=== PATIENT | male | born 1940 | race Caucasian/White ===

== ENCOUNTER 2020-10-21 15:01 | Emergency (ER) | payer OTHER, MEDICARE ==
[~2020-10-21] VITALS: Ht 185.4 cm; Wt 102.1 kg
[~2020-10-21 15:01] MED LIST: AMLO5 PO; ASPI81CH PO; ATOR20 PO; CARV3.125 PO; FISH1000 PO; LISI20 PO; MULVITMIND PO; Ranitidine HCl150 M1 PO
[2020-10-21] MEDS ORDERED: DOCU100 PO (15:21)
[2020-10-21 16:01] LABS: BASOPHILS ABSOLUTE AUTO 0.05 K/mm3 (0.00-0.23); BASOPHILS PERCENT AUTO 0 % (0-2); EOSINOPHILS PERCENT AUTO 0 % (0-6); Hematocrit 45.4 % (37.0-53.0); Hemoglobin 15.1 g/dL (13.5-17.5); IMMATURE GRAN ABSOLUTE AUTO 0.04 K/mm3 (0.00-0.10); IMMATURE GRAN PERCENT AUTO 0 % (0-1); LYMPHOCYTES ABSOLUTE AUTO 1.46 K/mm3 (0.84-5.20); LYMPHOCYTES PERCENT AUTO 13 % (21-46); MONOCYTES PERCENT AUTO 7 % (4-13); Mean Corpuscular HGB 30.7 pg (26.0-34.0); Mean Corpuscular HGB Conc 33.3 g/dL (31.5-36.5); Mean Corpuscular Volume 92 fL (80-100); Mean Platelet Volume 10.1 fL (9.1-12.4); NEUTROPHILS ABSOLUTE AUTO 9.14 K/mm3 (1.96-9.15); NEUTROPHILS PERCENT AUTO 80 % (41-73); Platelet Count 228 K/mm3 (150-400); RDW Coefficient Variation 12.5 % (11.7-14.2); RDW Standard Deviation 42.7 fL (35.1-46.3); Red Blood Cell Count 4.92 M/mm3 (4.30-5.90); White Blood Cell Count 11.49 K/mm3 (4.00-11.30)
[2020-10-21 16:05] LABS: Calcium, Ionized (POC) 1.11 mmol/L (1.10-1.46); Chloride (POC) 101 mmol/L (98-108); Creatinine (POC) 0.9 mg/dL (0.8-1.3); Glucose (ISTAT POC) 138 mg/dL (70-99); Potassium (POC) 4.1 mmol/L (3.5-5.5); Sodium (POC) 133 mmol/L (135-148); Total CO2 (POC) 24 mmol/L (21-32)
[2020-10-21 16:26] LABS: Source, Urine Catheter
[2020-10-21 16:30] LABS: Alanine Aminotransfer (ALT/SGP 26 U/L (12-78); Albumin, Blood 3.3 g/dL (3.4-5.0); Albumin/Globulin Ratio 0.9 (0.8-1.8); Alk Phos 94 U/L (50-136); Anion Gap 9 mmol/L (6-16); Aspartate Aminotrans (AST/SGOT 28 U/L (12-37); Bilirubin, Total 0.5 mg/dL (0.1-1.0); Blood Urea Nitrogen 17 mg/dL (8-24); Bun/Creatinine Ratio 19.6 (12.0-20.0); CO2, Blood 23 mmol/L (21-32); Calcium, Blood 9.1 mg/dL (8.5-10.1); Chloride, Blood 104 mmol/L (98-108); Creatinine, Blood 0.87 mg/dL (0.60-1.20); Globulin, Blood 3.5 g/dL (2.2-4.0); Glomerular Filtration Rate >60 (60-); Glucose, Blood 137 mg/dL (70-99); Potassium, Blood 4.2 mmol/L (3.5-5.5); Sodium, Blood 136 mmol/L (136-145); Total Protein, Blood 6.8 g/dL (6.4-8.2)
[2020-10-21 16:31] LABS: Appearance, Urine Cloudy (Clear); Bilirubin, Urine Neg (Neg); Blood, Urine 5+ (Neg); Color, Urine Yellow (P-Yellow); Glucose Qualitative, Urine Neg (Neg); Ketones, Urine 1+ (Neg); Leukocyte Esterase, Urine 3+ (Neg); Nitrite, Urine Neg (Neg); Protein, Urine 3+ (Neg); Specific Gravity, Urine 1.015 (1.003-1.022); Urobilinogen, Urine NORM (Normal)
[2020-10-21 16:37] LABS: Red Blood Cells, Urine TNTC /hpf (0-2); White Blood Cells, Urine TNTC /hpf (0-5)
[2020-10-21 16:38] LABS: Bacteria Many /hpf; Squamous Epithelial Cells Not Seen /hpf (Few); Transitional Epithelial Cells Rare /hpf (0-Rare)
== END 2020-10-21 18:51 | disposition home or self-care (01) ==
LOC: ER 15:01
PROVIDERS: Emergency Medicine
DX: N21.0 Calculus in bladder (principal); N13.30 Unspecified hydronephrosis; I10 Essential (primary) hypertension; Z79.899 Other long term (current) drug therapy; Z79.82 Long term (current) use of aspirin; Z96.0 Presence of urogenital implants
CPT/HCPCS: 36415; 51702; 51798; 74177; 80047; 80053; 81001; 85014; 85025; 87086; 99284-25; Q9967

== ENCOUNTER 2021-01-23 18:59 | Emergency (ER) | payer OTHER ==
[~2021-01-23] VITALS: Ht 170.2 cm; Wt 68.0 kg
[~2021-01-23 18:59] MED LIST changes: +DOCU100 PO
== END 2021-01-23 20:55 | disposition left against medical advice (07) ==
LOC: ER 18:59
DX: Z53.21 Procedure and treatment not carried out due to patient leaving prior to being seen by health care provider (principal)

== ENCOUNTER 2021-01-26 19:38 | Emergency (ER) | payer OTHER ==
[~2021-01-26] VITALS: Ht 185.4 cm; Wt 98.0 kg
[2021-01-26 20:38] LABS: BASOPHILS ABSOLUTE AUTO 0.06 K/mm3 (0.00-0.23); BASOPHILS PERCENT AUTO 1 % (0-2); EOSINOPHILS ABSOLUTE AUTO 0.07 K/mm3 (0.00-0.68); EOSINOPHILS PERCENT AUTO 1 % (0-6); Hematocrit 49.2 % (37.0-53.0); Hemoglobin 16.5 g/dL (13.5-17.5); IMMATURE GRAN ABSOLUTE AUTO 0.03 K/mm3 (0.00-0.10); IMMATURE GRAN PERCENT AUTO 0 % (0-1); LYMPHOCYTES ABSOLUTE AUTO 0.88 K/mm3 (0.84-5.20); LYMPHOCYTES PERCENT AUTO 8 % (21-46); MONOCYTES ABSOLUTE AUTO 0.65 K/mm3 (0.16-1.47); MONOCYTES PERCENT AUTO 6 % (4-13); Mean Corpuscular HGB 30.9 pg (26.0-34.0); Mean Corpuscular HGB Conc 33.5 g/dL (31.5-36.5); Mean Corpuscular Volume 92 fL (80-100); NEUTROPHILS ABSOLUTE AUTO 8.88 K/mm3 (1.96-9.15); NEUTROPHILS PERCENT AUTO 84 % (41-73); Platelet Count 204 K/mm3 (150-400); RDW Coefficient Variation 12.8 % (11.7-14.2); RDW Standard Deviation 43.5 fL (35.1-46.3); Red Blood Cell Count 5.34 M/mm3 (4.30-5.90); White Blood Cell Count 10.57 K/mm3 (4.00-11.30)
[2021-01-26 20:59] LABS: Alanine Aminotransfer (ALT/SGP 20 U/L (12-78); Albumin, Blood 3.6 g/dL (3.4-5.0); Albumin/Globulin Ratio 0.9 (0.8-1.8); Alk Phos 107 U/L (50-136); Anion Gap 4 mmol/L (6-16); Aspartate Aminotrans (AST/SGOT 17 U/L (12-37); Bilirubin, Total 0.6 mg/dL (0.1-1.0); Blood Urea Nitrogen 11 mg/dL (8-24); Bun/Creatinine Ratio 13.4 (12.0-20.0); CO2, Blood 29 mmol/L (21-32); Calcium, Blood 8.7 mg/dL (8.5-10.1); Chloride, Blood 102 mmol/L (98-108); Creatinine, Blood 0.82 mg/dL (0.60-1.20); Globulin, Blood 3.9 g/dL (2.2-4.0); Glomerular Filtration Rate >60 (60-); Glucose, Blood 113 mg/dL (70-99); Potassium, Blood 4.1 mmol/L (3.5-5.5); Sodium, Blood 135 mmol/L (136-145); Total Protein, Blood 7.5 g/dL (6.4-8.2); Troponin I <0.015 ng/mL (0.000-0.040)
== END 2021-01-27 02:20 | disposition home or self-care (01) ==
LOC: ER 19:38
PROVIDERS: Physician Assistant
DX: I10 Essential (primary) hypertension (principal); Z95.5 Presence of coronary angioplasty implant and graft; Z79.82 Long term (current) use of aspirin; Z79.899 Other long term (current) drug therapy
CPT/HCPCS: 36415; 71046; 80053; 84484; 85025; 93005; 93010; 99284-25

== ENCOUNTER 2021-01-31 13:44 | Emergency (ER) | payer OTHER ==
[~2021-01-31] VITALS: Ht 185.4 cm; Wt 99.8 kg
[2021-01-31 14:45] LABS: BASOPHILS ABSOLUTE AUTO 0.07 K/mm3 (0.00-0.23); BASOPHILS PERCENT AUTO 1 % (0-2); EOSINOPHILS ABSOLUTE AUTO 0.17 K/mm3 (0.00-0.68); EOSINOPHILS PERCENT AUTO 3 % (0-6); Hemoglobin 16.4 g/dL (13.5-17.5); IMMATURE GRAN ABSOLUTE AUTO 0.01 K/mm3 (0.00-0.10); IMMATURE GRAN PERCENT AUTO 0 % (0-1); LYMPHOCYTES ABSOLUTE AUTO 1.84 K/mm3 (0.84-5.20); LYMPHOCYTES PERCENT AUTO 27 % (21-46); MONOCYTES ABSOLUTE AUTO 0.61 K/mm3 (0.16-1.47); MONOCYTES PERCENT AUTO 9 % (4-13); Mean Corpuscular HGB 31.2 pg (26.0-34.0); Mean Corpuscular HGB Conc 33.5 g/dL (31.5-36.5); Mean Corpuscular Volume 93 fL (80-100); Mean Platelet Volume 10.3 fL (9.1-12.4); NEUTROPHILS ABSOLUTE AUTO 4.07 K/mm3 (1.96-9.15); NEUTROPHILS PERCENT AUTO 60 % (41-73); Platelet Count 232 K/mm3 (150-400); RDW Coefficient Variation 12.8 % (11.7-14.2); RDW Standard Deviation 43.8 fL (35.1-46.3); Red Blood Cell Count 5.26 M/mm3 (4.30-5.90); White Blood Cell Count 6.77 K/mm3 (4.00-11.30)
[2021-01-31 15:03] LABS: Alanine Aminotransfer (ALT/SGP 24 U/L (12-78); Albumin, Blood 3.5 g/dL (3.4-5.0); Albumin/Globulin Ratio 0.9 (0.8-1.8); Alk Phos 103 U/L (50-136); Anion Gap 0 mmol/L (6-16); Aspartate Aminotrans (AST/SGOT 37 U/L (12-37); Bilirubin, Total 0.6 mg/dL (0.1-1.0); Blood Urea Nitrogen 10 mg/dL (8-24); Bun/Creatinine Ratio 10.9 (12.0-20.0); CO2, Blood 32 mmol/L (21-32); Calcium, Blood 9.3 mg/dL (8.5-10.1); Chloride, Blood 101 mmol/L (98-108); Creatinine, Blood 0.92 mg/dL (0.60-1.20); Globulin, Blood 3.9 g/dL (2.2-4.0); Glomerular Filtration Rate >60 (60-); Glucose, Blood 140 mg/dL (70-99); Potassium, Blood 4.6 mmol/L (3.5-5.5); Sodium, Blood 133 mmol/L (136-145); Total Protein, Blood 7.4 g/dL (6.4-8.2); Troponin I <0.015 ng/mL (0.000-0.040)
== END 2021-01-31 19:21 | disposition home or self-care (01) ==
LOC: ER 13:44
PROVIDERS: Physician Assistant
DX: R07.9 Chest pain, unspecified (principal); M79.602 Pain in left arm; I10 Essential (primary) hypertension; Z95.5 Presence of coronary angioplasty implant and graft; Z79.82 Long term (current) use of aspirin
CPT/HCPCS: 36415; 71275; 80053; 84484; 85025; 93005; 93010; 99284-25; Q9967

== ENCOUNTER 2021-12-02 05:13 | Emergency (ER) | payer OTHER ==
[~2021-12-02] VITALS: Ht 185.4 cm; Wt 99.8 kg
[2021-12-02 06:08] LABS: Source, Urine Foley catheter
[2021-12-02 06:11] LABS: Appearance, Urine Hazy (Clear); Bilirubin, Urine Neg (Neg); Blood, Urine 5+ (Neg); Color, Urine Amber (P-Yellow); Glucose Qualitative, Urine Neg (Neg); Ketones, Urine Neg (Neg); Leukocyte Esterase, Urine 3+ (Neg); Nitrite, Urine Pos (Neg); Protein, Urine 3+ (Neg); Specific Gravity, Urine 1.015 (1.003-1.022); Urobilinogen, Urine NORM (Normal)
[2021-12-02 06:30] LABS: Red Blood Cells, Urine 50-100 /hpf (0-2); White Blood Cells, Urine 50-100 /hpf (0-5)
[2021-12-02] MEDS ORDERED: CEFD300 PO (06:30)
[2021-12-02 06:31] LABS: Bacteria Many /hpf; Squamous Epithelial Cells Not Seen /hpf (Few)
== END 2021-12-02 07:57 | disposition home or self-care (01) ==
LOC: ER 05:13
PROVIDERS: Emergency Medicine
DX: N39.0 Urinary tract infection, site not specified (principal); R33.9 Retention of urine, unspecified; I10 Essential (primary) hypertension; Z79.899 Other long term (current) drug therapy
CPT/HCPCS: 51702; 81001; 87077; 87086; 87186; 99283-25; A9270

== ENCOUNTER 2022-12-28 12:08 | Day surgery (SDC) | payer OTHER ==
[~2022-12-28] VITALS: Ht 185.4 cm; Wt 99.8 kg
[~2022-12-28 12:08] MED LIST changes: +CEFD300 PO
--- NOTE | 2022-12-28 13:11 | NUR ---
12/28/22 1311 Mendy Anna AT 1250 PLEDGET AT 1251
== END 2022-12-28 14:35 | disposition home or self-care (01) ==
LOC: ORSCSDS 12:08
PROVIDERS: Ophthalmology
PROC: 08DK3ZZ Extraction of Left Lens, Percutaneous Approach (ICD-10-PCS; principal; 2022-12-28 13:30)
DX: E11.36 Type 2 diabetes mellitus with diabetic cataract (principal); H25.12 Age-related nuclear cataract, left eye; H52.202 Unspecified astigmatism, left eye; I10 Essential (primary) hypertension; Z95.0 Presence of cardiac pacemaker; I25.10 Atherosclerotic heart disease of native coronary artery without angina pectoris; J44.9 Chronic obstructive pulmonary disease, unspecified; E78.5 Hyperlipidemia, unspecified; K21.9 Gastro-esophageal reflux disease without esophagitis; G83.9 Paralytic syndrome, unspecified; Z79.82 Long term (current) use of aspirin; Z79.899 Other long term (current) drug therapy
CPT/HCPCS: 82947; J2001; J2250; J2704; J3010; J3301; J7040; V2632

== ENCOUNTER 2023-04-12 01:15 | Observation (INO) | payer OTHER ==
[2023-04-12] VITALS (9 sets, daily range): BP systolic 129–163; BP diastolic 60–85
[~2023-04-12] VITALS: Ht 172.7 cm; Wt 99.9 kg
[2023-04-12] MEDS ORDERED: VITAMIN D310 MC1 PO (01:44)
[2023-04-12] MEDS ORDERED: FISH OIL 1,2001 EAC7 PO (01:44)
[2023-04-12 01:56] LABS: BASOPHILS ABSOLUTE AUTO 0.07 K/mm3 (0.00-0.23); BASOPHILS PERCENT AUTO 1 % (0-2); EOSINOPHILS ABSOLUTE AUTO 0.18 K/mm3 (0.00-0.68); EOSINOPHILS PERCENT AUTO 2 % (0-6); Hematocrit 43.2 % (37.0-53.0); Hemoglobin 15.1 g/dL (13.5-17.5); IMMATURE GRAN ABSOLUTE AUTO 0.06 K/mm3 (0.00-0.10); IMMATURE GRAN PERCENT AUTO 1 % (0-1); LYMPHOCYTES ABSOLUTE AUTO 1.74 K/mm3 (0.84-5.20); LYMPHOCYTES PERCENT AUTO 18 % (21-46); MONOCYTES ABSOLUTE AUTO 0.82 K/mm3 (0.16-1.47); MONOCYTES PERCENT AUTO 9 % (4-13); Mean Corpuscular HGB 31.9 pg (26.0-34.0); Mean Corpuscular Volume 91 fL (80-100); Mean Platelet Volume 9.9 fL (9.1-12.4); NEUTROPHILS ABSOLUTE AUTO 6.82 K/mm3 (1.96-9.15); NEUTROPHILS PERCENT AUTO 70 % (41-73); Platelet Count 202 K/mm3 (150-400); RDW Coefficient Variation 12.9 % (11.7-14.2); RDW Standard Deviation 43.1 fL (35.1-46.3); Red Blood Cell Count 4.73 M/mm3 (4.30-5.90); White Blood Cell Count 9.69 K/mm3 (4.00-11.30)
[2023-04-12 02:06] LABS: Albumin/Globulin Ratio 0.9 (0.8-1.8); Bilirubin, Total 0.3 mg/dL (0.1-1.0); Bun/Creatinine Ratio 17.7 (12.0-20.0); Creatinine, Blood 0.9 mg/dL (0.60-1.20); Globulin, Blood 3.4 g/dL (2.2-4.0); Potassium, Blood 4.1 mmol/L (3.5-5.5); Total Protein, Blood 6.4 g/dL (6.4-8.2)
[2023-04-12 03:51] LABS: Anti-Xa UFH, PHA Monitoring <0.10 IU/mL; Prothrombin Time Results 10.5 Sec (9.7-11.5)
[2023-04-12 05:55] LABS: BASOPHILS ABSOLUTE AUTO 0.06 K/mm3 (0.00-0.23); BASOPHILS PERCENT AUTO 1 % (0-2); EOSINOPHILS PERCENT AUTO 1 % (0-6); Hematocrit 42.8 % (37.0-53.0); Hemoglobin 14.4 g/dL (13.5-17.5); IMMATURE GRAN ABSOLUTE AUTO 0.02 K/mm3 (0.00-0.10); IMMATURE GRAN PERCENT AUTO 0 % (0-1); LYMPHOCYTES ABSOLUTE AUTO 2.15 K/mm3 (0.84-5.20); LYMPHOCYTES PERCENT AUTO 26 % (21-46); MONOCYTES ABSOLUTE AUTO 0.69 K/mm3 (0.16-1.47); MONOCYTES PERCENT AUTO 8 % (4-13); Mean Corpuscular HGB 31.4 pg (26.0-34.0); Mean Corpuscular HGB Conc 33.6 g/dL (31.5-36.5); Mean Corpuscular Volume 93 fL (80-100); Mean Platelet Volume 9.7 fL (9.1-12.4); NEUTROPHILS ABSOLUTE AUTO 5.34 K/mm3 (1.96-9.15); NEUTROPHILS PERCENT AUTO 64 % (41-73); Platelet Count 212 K/mm3 (150-400); RDW Standard Deviation 44.5 fL (35.1-46.3); Red Blood Cell Count 4.59 M/mm3 (4.30-5.90); White Blood Cell Count 8.36 K/mm3 (4.00-11.30)
[2023-04-12 06:37] LABS: Alanine Aminotransfer (ALT/SGP 16 U/L (12-78); Albumin, Blood 2.7 g/dL (3.4-5.0); Albumin/Globulin Ratio 0.9 (0.8-1.8); Alk Phos 79 U/L (50-136); Anion Gap 9 mmol/L (6-16); Aspartate Aminotrans (AST/SGOT 19 U/L (12-37); Bilirubin, Total 0.3 mg/dL (0.1-1.0); Blood Urea Nitrogen 12 mg/dL (8-24); Bun/Creatinine Ratio 14.4 (12.0-20.0); CHOL/HDL RATIO 2.7; CO2, Blood 22 mmol/L (21-32); Calcium, Blood 7.9 mg/dL (8.5-10.1); Chloride, Blood 102 mmol/L (98-108); Cholesterol 142 mg/dL (50-200); Creatinine, Blood 0.84 mg/dL (0.60-1.20); Glomerular Filtration Rate 87 (60-); Glucose, Blood 114 mg/dL (70-99); HDL Cholesterol 53 mg/dL (>39); LDL/HDL RATIO 1.5; Low Density Lipoprotein Chol 78 mg/dL (0-110); Potassium, Blood 3.7 mmol/L (3.5-5.5); Sodium, Blood 133 mmol/L (136-145); Total Protein, Blood 5.7 g/dL (6.4-8.2); Triglycerides 56 mg/dL (30-160); Very Low Density Lipoprot Chol 11 mg/dL (6-32)
--- NOTE | 2023-04-12 07:21 | NUR ---
SHIFT SUMARY ASSUMED CARE OF PT AT SHIFT CHANGE 0645. PT IS A/OX4. HEPRIN GTT RUNNING. PT ABLE TO TRANSFER FROM BED TO BED WITH 1P SBA. REPORT GIVEN TO WILMA VELÁSQUEZ. PT EDUCATED ABOUT HOSPITAL SMOKING POLICY.
--- NOTE | 2023-04-12 10:08 | NUR ---
PT LEFT PCU FOR ANGIO AT 0900 VIA HOSPITAL BED AND OCCOMPANIED BY 3 HC STAFF
--- NOTE | 2023-04-12 12:49 | NUR ---
PT ARRIVED BACK TO PCU FROM AT 1008. TR BAND IN PLACE RIGHT RADIAL SITE, C/D/I WITH NO TENDERNESS. BEDSIDE REPORT GIVEN TO PRODUCER ASSISTANT AND THEN FORWARDED TO THIS RN.
--- NOTE | 2023-04-12 12:51 | NUR ---
2ML REMOVED FROM TR BAND. SITE C/D/I. NO REPORT OF TENDERNESS AND NO HEMATOMA NOTED.
--- NOTE | 2023-04-12 12:55 | NUR ---
PT ASSESSED FOR IGNITION RISK DEVICES AND LIGHTERS AT 0800, NONE REPORTED BY PT. PT REMIDED THAT [facility] IS A SMOKE FREE FACILITY, PT EXPRESSED UNDERSTANDING. NO OXYGEN IN USE.
--- NOTE | 2023-04-12 18:33 | NUR ---
SHIFT SUMMARY PT A/OX4 AND COOPERATIVE OF CARE. PT ABLE TO EXPRESS NEEDS. PT VSS THROUGHOUT SHIFT WITH 02 SATS IN THE 90'S ON RA. NO REPORT OF CHEST PAIN/PRESSURE THROUGHOUT SHIFT, NITRO ON COUNTER IN ROOM IN CASE OF CHEST PAIN. NO REPORT OF SOB/DYSPNEA THROUGHOUT SHIFT. PT HAD ANGIO TODAY, NO INTERVENTIONS. RIGHT RADIAL SITE C/D/I WITH NO HEMATOMA NOTED AND NO TENDERNESS. PT INDEPENDENT IN BED. PT TRANSFERED FROM BED TO BSC WITH 2 PERSON ASSIST. PT HAS CHRONIC JAMA IN PLACE THAT WAS PLACED PRIOR TO ADMISSION, NOTIFIED AND ORDERED FOR IT TO STAY IN PLACE WITHOUT NEEDING TO CHAGE IT. JAMA DRAINING TO GRAVITY, YELLOW URINE.
[2023-04-12 20:45] LABS: Source, Urine Clean Catch
[2023-04-12 20:53] LABS: Appearance, Urine Cloudy (Clear); Bilirubin, Urine Neg (Neg); Blood, Urine 5+ (Neg); Color, Urine Yellow (P-Yellow); Glucose Qualitative, Urine 1+ (Neg); Ketones, Urine Neg (Neg); Leukocyte Esterase, Urine 3+ (Neg); Nitrite, Urine Pos (Neg); Protein, Urine 2+ (Neg); Specific Gravity, Urine 1.015 (1.003-1.022); Urobilinogen, Urine 1+ (Normal)
[2023-04-12 21:02] LABS: Bacteria Many /hpf; Hyaline Casts 0-2 /lpf (0-2); Squamous Epithelial Cells Rare /hpf (Few); WBC Cast 0-2 /lpf (0); White Blood Cells, Urine TNTC /hpf (0-5)
[2023-04-13 00:09] VITALS: BP 108/64
[2023-04-13 03:56] LABS: Hematocrit 44.6 % (37.0-53.0); Hemoglobin 15.2 g/dL (13.5-17.5); Mean Corpuscular HGB 31.6 pg (26.0-34.0); Mean Corpuscular HGB Conc 34.1 g/dL (31.5-36.5); Mean Corpuscular Volume 93 fL (80-100); Mean Platelet Volume 9.8 fL (9.1-12.4); Platelet Count 193 K/mm3 (150-400); RDW Standard Deviation 44.7 fL (35.1-46.3); Red Blood Cell Count 4.81 M/mm3 (4.30-5.90); White Blood Cell Count 7.71 K/mm3 (4.00-11.30)
[2023-04-13 05:14] VITALS: BP 126/68
[2023-04-13 05:50] LABS: Bun/Creatinine Ratio 15.3 (12.0-20.0); Calcium, Blood 8.4 mg/dL (8.5-10.1); Creatinine, Blood 0.92 mg/dL (0.60-1.20); Potassium, Blood 4.1 mmol/L (3.5-5.5)
--- NOTE | 2023-04-13 05:59 | NUR ---
SHIFT SUMMARY ASSUMED CARE OF PT AT 1900. PT IS A/OX4. HEART SOUNDS REGULAR, PT PACED T/O THE NOC. LUNG SOUNDS CLEAR. PT SLEPT MOST OF THE NOC. URINE HAS STRONG SMELL BUT CLEAR. R RADIAL SITE RECOVERED WITH SMALL BRUISE. PT EDUCATED ABOUT HOSPIAL SMOKING POLICY AND FIRE SAFETY.
[2023-04-13 08:26] VITALS: BP 141/85
[2023-04-13 12:00] VITALS: BP 145/72
[2023-04-13] MEDS ORDERED: AMLO5 PO (13:52)
[2023-04-13] MEDS ORDERED: ASPI81CH PO (13:53)
[2023-04-13] MEDS ORDERED: CLOP75 PO (13:54)
[2023-04-13] MEDS ORDERED: ATOR40TA PO (13:54)
[2023-04-13] MEDS ORDERED: METO25ER PO (13:55)
--- NOTE | 2023-04-13 16:43 | NUR ---
DISCHARGE UPDATE DISCHARGE PACKET GONE OVER WITH PT AND PT FRIEND AT 1515. PT DISCHARGED AT 1615 VIA WHEELCHAIR AND ON RA. PT BELONGINGS IN BAG ALONG WITH DISCHARGE PACKET AND WITH PT DURING DISCHARGE. PT FRIEND TO DRIVE PT HOME. PT ABLE TO RANSFER TO AND FROM WHEELCHAIR WITH MODERATE ASISTANCE AND TURNING AND PIVOTING.
== END 2023-04-13 16:18 | disposition home or self-care (01) ==
LOC: ER 01:15 → PCU 01:16
PROVIDERS: Family Medicine; Internal Medicine; Student in an Organized Health Care Education/Training Program; ADMIT Student in an Organized Health Care Education/Training Program
DX: I21.4 Non-ST elevation (NSTEMI) myocardial infarction (principal); I10 Essential (primary) hypertension; Z95.5 Presence of coronary angioplasty implant and graft; Z95.0 Presence of cardiac pacemaker; Z66 Do not resuscitate; I24.9 Acute ischemic heart disease, unspecified; I25.10 Atherosclerotic heart disease of native coronary artery without angina pectoris; Z88.8 Allergy status to other drugs, medicaments and biological substances; Z87.891 Personal history of nicotine dependence
CPT/HCPCS: 36415; 51702; 71045; 76937; 80048; 80053; 80061; 81001; 83880; 84484; 85025; 85027; 85520; 85610; 85730; 87086; 93005; 93010; 93458; 96365-59; 96366-59; 99152; 99285-25; A9270; C1769; C1887; C1894; C8929; G0378; J1644; J2250; J3010; J7030; J7050; Q9957; Q9967

== ENCOUNTER 2023-07-20 05:09 | Emergency (ER) | payer OTHER ==
[~2023-07-20] VITALS: Ht 185.4 cm; Wt 97.5 kg
[~2023-07-20 05:09] MED LIST changes: +ATOR40TA PO; +CLOP75 PO; +FISH OIL 1,2001 EAC7 PO; +METO25ER PO; +VITAMIN D310 MC1 PO
[2023-07-20] MEDS ORDERED: BACLOFEN5 M1 PO (05:27)
[2023-07-20 06:40] LABS: BASOPHILS ABSOLUTE AUTO 0.04 K/mm3 (0.00-0.23); BASOPHILS PERCENT AUTO 0 % (0-2); EOSINOPHILS ABSOLUTE AUTO 0.01 K/mm3 (0.00-0.68); EOSINOPHILS PERCENT AUTO 0 % (0-6); Hematocrit 40.7 % (37.0-53.0); Hemoglobin 14.3 g/dL (13.5-17.5); IMMATURE GRAN ABSOLUTE AUTO 0.03 K/mm3 (0.00-0.10); IMMATURE GRAN PERCENT AUTO 0 % (0-1); LYMPHOCYTES ABSOLUTE AUTO 1.11 K/mm3 (0.84-5.20); LYMPHOCYTES PERCENT AUTO 10 % (21-46); MONOCYTES ABSOLUTE AUTO 0.73 K/mm3 (0.16-1.47); MONOCYTES PERCENT AUTO 7 % (4-13); Mean Corpuscular HGB 31.5 pg (26.0-34.0); Mean Corpuscular HGB Conc 35.1 g/dL (31.5-36.5); Mean Corpuscular Volume 90 fL (80-100); NEUTROPHILS ABSOLUTE AUTO 8.92 K/mm3 (1.96-9.15); NEUTROPHILS PERCENT AUTO 82 % (41-73); Platelet Count 205 K/mm3 (150-400); RDW Coefficient Variation 12.7 % (11.7-14.2); RDW Standard Deviation 42.2 fL (35.1-46.3); Red Blood Cell Count 4.54 M/mm3 (4.30-5.90); White Blood Cell Count 10.84 K/mm3 (4.00-11.30)
[2023-07-20 06:57] LABS: Source, Urine Foley catheter
[2023-07-20 07:12] LABS: Albumin, Blood 3.3 g/dL (3.4-5.0); Albumin/Globulin Ratio 1.1 (0.8-1.8); Bilirubin, Direct 0.3 mg/dL (0.0-0.3); Bilirubin, Indirect 0.8 mg/dL (0.1-0.7); Bilirubin, Total 1.1 mg/dL (0.1-1.0); Bun/Creatinine Ratio 22.8 (12.0-20.0); Calcium, Blood 8.3 mg/dL (8.5-10.1); Creatinine, Blood 0.75 mg/dL (0.60-1.20); Globulin, Blood 3.1 g/dL (2.2-4.0); Potassium, Blood 3.7 mmol/L (3.5-5.5); Total Protein, Blood 6.4 g/dL (6.4-8.2)
[2023-07-20 07:35] LABS: Bilirubin, Urine Neg (Neg); Blood, Urine 5+ (Neg); Glucose Qualitative, Urine Neg (Neg); Ketones, Urine 2+ (Neg); Leukocyte Esterase, Urine 3+ (Neg); Nitrite, Urine Pos (Neg); Protein, Urine 2+ (Neg); Specific Gravity, Urine 1.015 (1.003-1.022); Urobilinogen, Urine NORM (Normal)
[2023-07-20 07:38] LABS: Appearance, Urine Hazy (Clear); Color, Urine Yellow (P-Yellow)
[2023-07-20 07:42] LABS: Red Blood Cells, Urine 25-50 /hpf (0-2); White Blood Cells, Urine 25-50 /hpf (0-5)
[2023-07-20 07:43] LABS: Bacteria Mod /hpf; Squamous Epithelial Cells Rare /hpf (Few)
[2023-07-20] MEDS ORDERED: CEFP200 PO (08:04)
[2023-07-20 10:38] VITALS: BP 122/66
== END 2023-07-20 10:55 | disposition home or self-care (01) ==
LOC: ER 05:09
PROVIDERS: Student in an Organized Health Care Education/Training Program
DX: T83.518A Infection and inflammatory reaction due to other urinary catheter, initial encounter (principal); T83.018A Breakdown (mechanical) of other urinary catheter, initial encounter; R33.9 Retention of urine, unspecified; X58.XXXA Exposure to other specified factors, initial encounter; Z87.891 Personal history of nicotine dependence; I10 Essential (primary) hypertension; R73.03 Prediabetes; Z88.6 Allergy status to analgesic agent; Z88.8 Allergy status to other drugs, medicaments and biological substances; Z79.899 Other long term (current) drug therapy
CPT/HCPCS: 51702; 51798; 80048; 80076; 81001; 85025; 87077; 87086; 87147; 87186; 96374; 99284-25; A9270; J2270

== ENCOUNTER 2023-10-28 05:25 | Emergency (ER) | payer OTHER ==
[~2023-10-28] VITALS: Ht 185.4 cm; Wt 97.5 kg
[~2023-10-28 05:25] MED LIST changes: +BACLOFEN5 M1 PO; +CEFP200 PO; +SULTRIDS PO
[2023-10-28] MEDS ORDERED: Tranexamic Acid 100 ML IV ONE (07:10)
[2023-10-28 10:25] LABS: Source, Urine Foley catheter
[2023-10-28 10:31] LABS: Appearance, Urine Cloudy (Clear); Bilirubin, Urine Neg (Neg); Blood, Urine 4+ (Neg); Color, Urine Yellow (P-Yellow); Glucose Qualitative, Urine Neg (Neg); Ketones, Urine Neg (Neg); Leukocyte Esterase, Urine 3+ (Neg); Nitrite, Urine Neg (Neg); Protein, Urine Neg (Neg); Urobilinogen, Urine NORM (Normal)
[2023-10-28 10:43] LABS: Bacteria Mod /hpf; Red Blood Cells, Urine 0-2 /hpf (0-2); Squamous Epithelial Cells Few /hpf (Few); White Blood Cells, Urine 25-50 /hpf (0-5)
[2023-10-28 13:00] VITALS: BP 138/70
== END 2023-10-28 13:19 | disposition home or self-care (01) ==
LOC: ER 05:25
PROVIDERS: Student in an Organized Health Care Education/Training Program
DX: R31.9 Hematuria, unspecified (principal); Z87.448 Personal history of other diseases of urinary system; Z96.0 Presence of urogenital implants; Z87.891 Personal history of nicotine dependence; I10 Essential (primary) hypertension; N40.0 Benign prostatic hyperplasia without lower urinary tract symptoms; Z79.899 Other long term (current) drug therapy; Z88.4 Allergy status to anesthetic agent; Z88.8 Allergy status to other drugs, medicaments and biological substances
CPT/HCPCS: 12046; 51798; 81001; 87077; 87086; 87186; 96374; 99283-25

== ENCOUNTER 2024-09-13 23:22 | Inpatient (IN) | payer OTHER ==
[~2024-09-13] VITALS: Ht 185.4 cm; Wt 101.6 kg
[~2024-09-13 23:22] MED LIST changes: +FISH OIL 1,2001 EAC4 PO; -FISH OIL 1,2001 EAC7 PO
[2024-09-13 23:42] LABS: BASOPHILS ABSOLUTE AUTO 0.08 K/mm3 (0.00-0.23); BASOPHILS PERCENT AUTO 1 % (0-2); EOSINOPHILS ABSOLUTE AUTO 0.22 K/mm3 (0.00-0.68); EOSINOPHILS PERCENT AUTO 2 % (0-6); Hematocrit 37.4 % (37.0-53.0); Hemoglobin 11.8 g/dL (13.5-17.5); IMMATURE GRAN ABSOLUTE AUTO 0.03 K/mm3 (0.00-0.10); IMMATURE GRAN PERCENT AUTO 0 % (0-1); LYMPHOCYTES ABSOLUTE AUTO 2.19 K/mm3 (0.84-5.20); LYMPHOCYTES PERCENT AUTO 21 % (21-46); MONOCYTES ABSOLUTE AUTO 1.09 K/mm3 (0.16-1.47); MONOCYTES PERCENT AUTO 10 % (4-13); Mean Corpuscular HGB 27.5 pg (26.0-34.0); Mean Corpuscular HGB Conc 31.6 g/dL (31.5-36.5); Mean Corpuscular Volume 87 fL (80-100); Mean Platelet Volume 10.2 fL (9.1-12.4); NEUTROPHILS ABSOLUTE AUTO 6.95 K/mm3 (1.96-9.15); NEUTROPHILS PERCENT AUTO 66 % (41-73); Platelet Count 257 K/mm3 (150-400); RDW Coefficient Variation 14.6 % (11.7-14.2); RDW Standard Deviation 46.8 fL (35.1-46.3); Red Blood Cell Count 4.29 M/mm3 (4.30-5.90); White Blood Cell Count 10.56 K/mm3 (4.00-11.30)
[2024-09-13] MEDS ORDERED: Aspir 8181 MG PO (23:52)
[2024-09-13 23:55] LABS: Albumin, Blood 3.3 g/dL (3.4-5.0); Albumin/Globulin Ratio 0.8 (0.8-1.8); Bilirubin, Total 0.4 mg/dL (0.1-1.0); Bun/Creatinine Ratio 29.8 (12.0-20.0); Calcium, Blood 8.7 mg/dL (8.5-10.1); Creatinine, Blood 0.64 mg/dL (0.60-1.20); Globulin, Blood 3.9 g/dL (2.2-4.0); Potassium, Blood 4.6 mmol/L (3.5-5.5); Total Protein, Blood 7.2 g/dL (6.4-8.2)
[2024-09-14] MEDS ORDERED: FLU VACC TS2024-25(6MOS UP)/PF 45 MCG/0.5 ML SYRINGE IM ONE (03:45)
[2024-09-14 04:34] VITALS: BP 144/77
[2024-09-14] MEDS ORDERED: Nitroglycerin 0.4 MG SUBL SL PRN (04:40)
[2024-09-14] MEDS ORDERED: NS 1,000 ML IV ONE (04:40)
[2024-09-14 05:37] LABS: Bun/Creatinine Ratio 23.5 (12.0-20.0); Calcium, Blood 9.1 mg/dL (8.5-10.1); Creatinine, Blood 0.64 mg/dL (0.60-1.20); Potassium, Blood 3.9 mmol/L (3.5-5.5)
--- NOTE | 2024-09-14 05:38 | NUR ---
SBAR RECEIVED OVER THE PHONE FROM ANIMAL CARE WORKERCHRISTEN HARTMANN @1493. PT ARRIVED TO MEDICAL FLOOR RM#[id number] @8971. PT TRANSFERRED FROM ER [facility] TO HOSPITAL BED WITH SBA. PT BROUGHT ALL HIS BELONINGS FROM THE ED. PT HAS A LEG BAG FOR THE SUPRAPUBIC CATHETER; PER PT REQUEST IT WAS PLACED TO A PT BELONINGS BAG AMONG WITH HIS PAIR OF SWEATS. CHRISTEN FERNÁNDEZ COMPLETED THE ADMISSION ASSESSMENT, AND SKIN CHECK WAS COMPLETED BY CHRISTEN FERNÁNDEZ AND CHRISTEN SAM. PT IS A&O X4, TALKATIVE, COOPERATIVE WITH CARE. NS INFUSING @75MLS/HR 1/1BAG. SUPRAPUBIC CATHETER BAG WAS SWITCHED TO 1L BAG, STERILE CONNECTION. CHRISTEN DAVIS WAS NOTIFIED THAT THE CATHETER WAS NOT CHANGED UPON ADMISSION TO THE MEDICAL FLOOR NOR AT ED. PT HAS AN APPOINTMENT WITH PA UROLOGIST IN [place], [place] THIS UPCOMING WEEK (PER ED CHRISTEN PATTERSON, SCHEDULED CATHETER CHANGE). PER CHRISTEN FERNÁNDEZ: SKIN: LEFT LE IS REDDENED, INTACT AND RIGHT GLUTEAL FOLD AREA HAS AN AREA THAT IS REDDISH IN COLOR, INTACT. PT REPORTS THIS WAS AN OLD AREA WHERE HE HAD A SKIN FUNGI. NO OTHER SKIN ISSUES PER RN REPORT. BED AT THE LOWEST POSITION, CALL LIGHT WITHIN REACH. PT WAS EDUCATED HOSPICE DIRECTOR LIGHT AND FALL PRECAUTIONS.
[2024-09-14] MEDS ORDERED: Mag Hydrox/Al Hydrox/Simeth 72 ML,Lidocaine 2% Viscous Soln 36 ML,Atropine/Scopalam/Hyo... PO PRN (06:30)
[2024-09-14 07:29] VITALS: BP 138/79
[2024-09-14] MEDS ORDERED: Enoxaparin 40 MG/0.4 ML SYR SC SCH (09:00)
[2024-09-14] MEDS ORDERED: Cholecalciferol 400 unit Tab PO SCH ×2 (09:00→10:00)
[2024-09-14] MEDS ORDERED: Aspirin 81 MG Chew PO SCH (09:00)
[2024-09-14] MEDS ORDERED: AmLODIPine Besylate 5 MG Tab PO SCH (09:00)
[2024-09-14] MEDS ORDERED: Metoprolol Succinate 25 MG TABCR PO SCH (09:00)
[2024-09-14] MEDS ORDERED: Docosahexanoic Acid/EPA 1,000 MG CAP PO SCH (09:00)
[2024-09-14] MEDS ORDERED: Atorvastatin 40 MG Tab PO SCH (09:00)
[2024-09-14] MEDS ORDERED: Isosorbide Mononitrate 60 MG TABCR PO SCH (11:00)
--- NOTE | 2024-09-14 14:17 | NUR ---
REPORT GIVEN TO JEREMIAH VELÁSQUEZ. MOVING PT FROM SCU TO MAIN MED FLOOR.
[2024-09-14 15:23] VITALS: BP 97/54
[2024-09-14] MEDS ORDERED: Pantoprazole Sodium 20 MG Tab PO SCH (16:30)
--- NOTE | 2024-09-14 17:54 | NUR ---
SHIFT SUMMARY: PT AOX4 TRANSFERRED FROM THE SCU. PLEASANT, WEAK IN THE LEGS AND HANDS BUT IS A 1PERSON STAND PIVOT INTO CHAIR OR COMMODE. VERY PLEASANT AND IN GOOD MOOD. NEUROTIC AT TIMES AND ANXIOUS ABOUT SOME DISCHARGE PLANNING. ABLE TO MAKE NEEDS KNOWN. BP WAS LIGHT AFTER STARTING NEW MEDICATION. DOCTOR NOTIFIED BUT NOT TOO WORRIED. PT ASSYMPTOMATIC. CURRENTLY LAYING IN BED RESTING, BED IN LOWEST POSITION, CALL LIGHT IN REACH. CONTINUING CARE.
--- NOTE | 2024-09-14 17:59 | NUR ---
THIS GREEN PIPEFITTER HAS REVIEWED AND AGREES WITH ALL NOTES AND ASSESSMENTS BY CHRISTEN DANIELS.
[2024-09-14 19:12] VITALS: BP 87/37
[2024-09-14 19:16] VITALS: BP 95/54
[2024-09-15 04:39] VITALS: BP 84/55
--- NOTE | 2024-09-15 06:34 | NUR ---
SHIFT SUMMARY AT START OF SHIFT, PT RESTING COMFORTABLY IN HIS BED, WATCHING TV. PT IS PLEASANT AND COOPERATIVE WITH HIS CARE. PT STATED CONCERNS ABOUT HIS NEW MEDICATION IMDUR CAUSING DECREASED BLOOD PRESSURE. PT EDUCATED ON ADVERSE REACTIONS VS SIDE EFFECTS. PT IS STABLE AND COHERANT AND ASYMPTOMATIC. WILL CONTINUE MONITORING PT AND WILL RELAY PT CONCERNS TO DAYSHIFT RN.
[2024-09-15 07:33] VITALS: BP 112/61
[2024-09-15] MEDS ORDERED: AmLODIPine Besylate 5 MG Tab PO SCH (09:00)
[2024-09-15] MEDS ORDERED: FentaNYL Citrate 50 MCG/ML 2 ML Injection IV ONE (09:25)
--- NOTE | 2024-09-15 10:35 | NUR ---
PT C/O 10/ CHEST PAIN AND HOLDING CHEST THIS RN ENTERED ROOM. CALLED DR. CHUNG STATING TO PLACE ORDER FOR STAT EKG AND TROPONIN AND PROVIDE 25MCG FENTANYL WITH SL NITRO. ORDERS PLACED. EKG OBTAINED. TROPONIN BACK WITH A CRITICAL OF 1157. CALL PLACED TO DR. CHUNG TO PROVIDE CRITICAL RESULTS. DR. CHUNG IN ROOM WITH PT AT THIS TIME.
[2024-09-15] MEDS ORDERED: Clopidogrel Bisulfate 75 MG Tab PO SCH (12:00)
[2024-09-15 15:30] VITALS: BP 103/56
--- NOTE | 2024-09-15 17:31 | NUR ---
SHIFT SUMMARY PT AOX4, COOPERATIVE, ABLE TOMAKE NEEDS KNOWN. PT HAD EPISODE OF CHEST PAIN RATED 10/10, INFORMED , PLACED ORDERS. PT TO BE STAYING ANOTHER DAY. GOT UP TO THE BATHROOM TODAY USING PERSONAL "SHOWER CHAIR", TRANFERRED WITHOUT INJURY SUCCESSFUL. PT PLACED BACK ON PLAVIX STARTING TOMORROW. BED IN LOWEST POSITION, CALL LIGHT WITHIN REACH.
[2024-09-15 19:30] VITALS: BP 106/65
[2024-09-15] MEDS ORDERED: Sennosides 8.6 MG Tab PO PRN (21:55)
[2024-09-15] MEDS ORDERED: Polyethylene Glycol 3350 17 gm PO PRN (21:55)
[2024-09-16 02:06] VITALS: BP 118/60
[2024-09-16 04:36] LABS: Hematocrit 32.2 % (37.0-53.0); Hemoglobin 10.3 g/dL (13.5-17.5); Mean Corpuscular HGB 27.7 pg (26.0-34.0); Mean Corpuscular Volume 87 fL (80-100); Mean Platelet Volume 10.4 fL (9.1-12.4); Platelet Count 219 K/mm3 (150-400); RDW Coefficient Variation 14.7 % (11.7-14.2); Red Blood Cell Count 3.72 M/mm3 (4.30-5.90); White Blood Cell Count 8.96 K/mm3 (4.00-11.30)
--- NOTE | 2024-09-16 05:13 | NUR ---
SHIFT SUMMARY ASSUMED CARE OF PT AT APPROX 1900. PT A&O4, PLEASANT, TALKATIVE, COOPERATIVE IN CARE AND ABLE TO EXPRESS NEEDS APPROPRIATELY. PER PT REQUEST, CALLED MD FOR STOOL SOFTENER, PT STATED HAS NOT PASSED BM IN 4 DAYS. ORDERS PLACED BY MD, PT ONLY REQUESTED SENNA. ASSISTED PT TO RR VIA PERSONAL ROLLING CHAIR, BUT UNSUCCESSFUL. PT DENIED CP/PRESSURE OVERNIGHT BUT DID REQUEST SUPPLEMENTAL OXYGEN VIA NC FOR SOME SOB FOR A BRIEF TIME. PT'S BED IN LOWEST POSITION AND CALL LIGHT WITHIN REACH.
[2024-09-16 07:37] VITALS: BP 119/68
[2024-09-16] MEDS ORDERED: Docusate Sodium 100 MG Cap PO SCH (09:00)
[2024-09-16] MEDS ORDERED: Enoxaparin 40 MG/0.4 ML SYR SC SCH (09:00)
[2024-09-16] MEDS ORDERED: CLOP75 PO (13:52)
[2024-09-16] MEDS ORDERED: DOCU100 PO (13:52)
[2024-09-16] MEDS ORDERED: PANT20 PO (13:53)
[2024-09-16] MEDS ORDERED: MIRALAX17 GM PO (13:53)
--- NOTE | 2024-09-16 15:00 | NUR ---
PT DISCHARGED TO HOME WITH CAREGIVER. CAREGIVER PRESENT AT TIME OF DISCHARGE. ALL VALUABLES RETURNED AND SENT WITH THE PT. DISCHARGE EDUCATION PROVIDED AND SENT WITH THE PT.
== END 2024-09-16 15:29 | disposition home or self-care (01) | DRG 282 ==
LOC: ER 23:22 → MEDS 23:23 → ENPENDDIS 09-16 13:48 → MEDS 09-16 15:29
PROVIDERS: Internal Medicine; Student in an Organized Health Care Education/Training Program; ADMIT Internal Medicine
DX: I21.4 Non-ST elevation (NSTEMI) myocardial infarction (principal); Z28.21 Immunization not carried out because of patient refusal; Z66 Do not resuscitate; I25.10 Atherosclerotic heart disease of native coronary artery without angina pectoris; Z95.5 Presence of coronary angioplasty implant and graft; Z95.0 Presence of cardiac pacemaker; I10 Essential (primary) hypertension; R12 Heartburn; N40.0 Benign prostatic hyperplasia without lower urinary tract symptoms; N31.9 Neuromuscular dysfunction of bladder, unspecified; I25.2 Old myocardial infarction; Z90.49 Acquired absence of other specified parts of digestive tract; Z87.891 Personal history of nicotine dependence; Z88.8 Allergy status to other drugs, medicaments and biological substances; Z79.82 Long term (current) use of aspirin; Z79.899 Other long term (current) drug therapy; Z98.1 Arthrodesis status
CPT/HCPCS: 36415; 71045; 80048; 80053; 83880; 84484; 85025; 85027; 93005; 93010; 96372; 96374; 99285-25; A9270; G0378; J1650; J2470; J3010; J7030

== ENCOUNTER 2024-10-28 12:45 | Inpatient (IN) | payer OTHER ==
[~2024-10-28] VITALS: Ht 185.4 cm; Wt 108.4 kg
[~2024-10-28 12:45] MED LIST changes: +Aspir 8181 MG PO; +MIRALAX17 GM PO; +PANT20 PO
[2024-10-28 13:25] LABS: BASOPHILS ABSOLUTE AUTO 0.07 K/mm3 (0.00-0.23); BASOPHILS PERCENT AUTO 1 % (0-2); EOSINOPHILS ABSOLUTE AUTO 0.18 K/mm3 (0.00-0.68); EOSINOPHILS PERCENT AUTO 2 % (0-6); Hematocrit 29.5 % (37.0-53.0); Hemoglobin 9.4 g/dL (13.5-17.5); IMMATURE GRAN ABSOLUTE AUTO 0.03 K/mm3 (0.00-0.10); IMMATURE GRAN PERCENT AUTO 0 % (0-1); LYMPHOCYTES ABSOLUTE AUTO 0.95 K/mm3 (0.84-5.20); LYMPHOCYTES PERCENT AUTO 12 % (21-46); MONOCYTES ABSOLUTE AUTO 0.97 K/mm3 (0.16-1.47); MONOCYTES PERCENT AUTO 12 % (4-13); Mean Corpuscular HGB Conc 31.9 g/dL (31.5-36.5); Mean Corpuscular Volume 79 fL (80-100); NEUTROPHILS ABSOLUTE AUTO 6.08 K/mm3 (1.96-9.15); NEUTROPHILS PERCENT AUTO 73 % (41-73); Platelet Count 286 K/mm3 (150-400); RDW Standard Deviation 45.5 fL (35.1-46.3); Red Blood Cell Count 3.76 M/mm3 (4.30-5.90); White Blood Cell Count 8.28 K/mm3 (4.00-11.30)
[2024-10-28 13:46] LABS: Albumin/Globulin Ratio 0.8 (0.8-1.8); Bilirubin, Total 0.5 mg/dL (0.1-1.0); Bun/Creatinine Ratio 26.8 (12.0-20.0); Calcium, Blood 8.6 mg/dL (8.5-10.1); Creatinine, Blood 0.75 mg/dL (0.60-1.20); Globulin, Blood 3.8 g/dL (2.2-4.0); Potassium, Blood 4.8 mmol/L (3.5-5.5); Total Protein, Blood 6.8 g/dL (6.4-8.2)
[2024-10-28] MEDS ORDERED: Isosorbide Mono30 MG PO (17:16)
[2024-10-28] MEDS ORDERED: Furosemide 10 MG/ML 4ML Vial IV ONE (18:30)
[2024-10-28] MEDS ORDERED: Ondansetron HCl 2 MG / ML 2ML Vial IV PRN (21:25)
[2024-10-28] MEDS ORDERED: FLU VACC TS2024-25(6MOS UP)/PF 45 MCG/0.5 ML SYRINGE IM ONE (21:25)
[2024-10-29] MEDS ORDERED: Isosorbide Mono30 MG PO (00:10)
[2024-10-29] MEDS ORDERED: 1/2 NS 250ml250 ML (00:11)
[2024-10-29] MEDS ORDERED: Aspirin 81 MG Chew PO ONE (00:55)
[2024-10-29] MEDS ORDERED: Metoprolol Succinate 25 MG TABCR PO ONE (00:55)
[2024-10-29] MEDS ORDERED: Isosorbide Mononitrate 30 MG TABCR PO ONE ×2 (01:00→02:35)
[2024-10-29 05:51] LABS: Albumin, Blood 2.8 g/dL (3.4-5.0); Albumin/Globulin Ratio 0.9 (0.8-1.8); Bilirubin, Total 0.5 mg/dL (0.1-1.0); Bun/Creatinine Ratio 29.6 (12.0-20.0); Calcium, Blood 8.4 mg/dL (8.5-10.1); Creatinine, Blood 0.74 mg/dL (0.60-1.20); Globulin, Blood 3.2 g/dL (2.2-4.0); Magnesium, Blood 2.1 mg/dL (1.6-2.4); Potassium, Blood 3.8 mmol/L (3.5-5.5)
[2024-10-29] MEDS ORDERED: Omeprazole 20 MG CapCR PO SCH (06:00)
[2024-10-29] MEDS ORDERED: Aspirin 81 MG Chew PO SCH (09:00)
[2024-10-29] MEDS ORDERED: Enoxaparin 40 MG/0.4 ML SYR SC SCH (09:00)
[2024-10-29] MEDS ORDERED: Clopidogrel Bisulfate 75 MG Tab PO SCH (09:00)
[2024-10-29] MEDS ORDERED: Furosemide 10 MG/ML 4ML Vial IV SCH ×2 (09:00→18:00)
[2024-10-29] MEDS ORDERED: Atorvastatin 40 MG Tab PO SCH (09:00)
[2024-10-29] MEDS ORDERED: Polyethylene Glycol 3350 17 gm PO PRN (12:50)
[2024-10-29 12:51] VITALS: BP 116/67
[2024-10-29 16:26] VITALS: BP 114/66
--- NOTE | 2024-10-29 17:49 | NUR ---
SHIFT SUMMARY PT ADMITTED TO MEDICAL FLOOR FROM ER FOR NEW ONSET CHF. PT ARRIVES VIA [employer], ABLE TO OPERATE INDEPENDENTLY. PT ABLE TO STAND PIVOT TO BED WITH SBA. AWAKE/ALERT, ORIENTED x4. RECONCILIATION OF MEDICATIONS COMPLETED AT BEDSIDE, PHYSICAL ASSESSMENT AND SKIN CHECK COMPLETED BY 2 RN - DOCUMENTED. IV LEFT FOREARM PATENT AND SITE APPEARS WNL - CURRENTLY SALINE LOCKED. APPETITE GOOD. JAMA CATHETER PATENENT AND DRAINING CLEAR YELLOW URINE. PT CURRENTLY RESTING IN [employer] READING HIS BOOK, CALL LIGHT WITHIN REACH. PT USES CALL LIGHT APPROPRIATELY.
[2024-10-29 19:43] VITALS: BP 118/105
[2024-10-29] MEDS ORDERED: Docusate Sodium 100 MG Cap PO SCH (21:00)
[2024-10-29] MEDS ORDERED: Metoprolol Succinate 50 MG TABCR PO SCH (22:01)
[2024-10-29] MEDS ORDERED: Isosorbide Mononitrate 60 MG TABCR PO SCH (22:05)
--- NOTE | 2024-10-30 03:12 | NUR ---
SHIFT SUMMARY NO ACUTE EVENTS/DISTRESS NOTED/REPORTED DURING THIS SHIFT. PT IS A/O X4, TALKATIVE, COOPERATIVE WITH CARE. SUPRAPUBIC CATHETER DRAINING YELLOW COLOR URINE. PT DENIES PAIN AND DISCOMFORT DURING THIS SHIFT. TELE: SR@74 WITH BBB. +3 PITTING EDEMA TO LE'S. BED AT THE LOWEST POSITION, CALL LIGHT W/I REACH. PT IS ABLE TO MAKE HIS NEEDS KNOWN.
[2024-10-30 03:57] VITALS: BP 93/54
[2024-10-30 05:30] LABS: BASOPHILS ABSOLUTE AUTO 0.06 K/mm3 (0.00-0.23); BASOPHILS PERCENT AUTO 1 % (0-2); EOSINOPHILS ABSOLUTE AUTO 0.32 K/mm3 (0.00-0.68); EOSINOPHILS PERCENT AUTO 4 % (0-6); Hematocrit 27.1 % (37.0-53.0); Hemoglobin 8.5 g/dL (13.5-17.5); IMMATURE GRAN ABSOLUTE AUTO 0.03 K/mm3 (0.00-0.10); IMMATURE GRAN PERCENT AUTO 0 % (0-1); LYMPHOCYTES ABSOLUTE AUTO 1.34 K/mm3 (0.84-5.20); LYMPHOCYTES PERCENT AUTO 18 % (21-46); MONOCYTES ABSOLUTE AUTO 1.19 K/mm3 (0.16-1.47); MONOCYTES PERCENT AUTO 16 % (4-13); Mean Corpuscular HGB 24.8 pg (26.0-34.0); Mean Corpuscular HGB Conc 31.4 g/dL (31.5-36.5); Mean Corpuscular Volume 79 fL (80-100); Mean Platelet Volume 10.4 fL (9.1-12.4); NEUTROPHILS ABSOLUTE AUTO 4.57 K/mm3 (1.96-9.15); NEUTROPHILS PERCENT AUTO 61 % (41-73); Platelet Count 262 K/mm3 (150-400); RDW Coefficient Variation 16.4 % (11.7-14.2); RDW Standard Deviation 47.1 fL (35.1-46.3); Red Blood Cell Count 3.43 M/mm3 (4.30-5.90); White Blood Cell Count 7.51 K/mm3 (4.00-11.30)
[2024-10-30 05:46] LABS: Bun/Creatinine Ratio 21.9 (12.0-20.0); Calcium, Blood 8.4 mg/dL (8.5-10.1); Creatinine, Blood 0.96 mg/dL (0.60-1.20); Potassium, Blood 3.7 mmol/L (3.5-5.5)
[2024-10-30 07:57] VITALS: BP 104/54
[2024-10-30] MEDS ORDERED: Isosorbide Mononitrate 60 MG TABCR PO SCH ×2 (09:00→21:00)
[2024-10-30] MEDS ORDERED: Metoprolol Succinate 50 MG TABCR PO SCH ×2 (09:00→21:00)
[2024-10-30] MEDS ORDERED: Furosemide 10 MG/ML 4ML Vial IV SCH (09:00)
[2024-10-30] MEDS ORDERED: Cholecalciferol 400 unit Tab PO SCH (09:00)
[2024-10-30] MEDS ORDERED: Empagliflozin 10 MG TAB PO SCH (09:00)
[2024-10-30 15:49] VITALS: BP 121/65
--- NOTE | 2024-10-30 17:07 | NUR ---
SHIFT SUMMARY NO ACUTE CHANGES. VSS, PT DENIES PAIN T/O SHIFT. SUPRPUBIC CATHETER REMAINS PATENT AND DRAINING CLEAR YELLOW URINE, PT REPORTS HAVING AN APPOINTMENT WITH [place] ON Sunday11/04/24 FOR ROUTINE CHANGE. IV SALINE LOCKED AT THIS TIME. PT TOLERATING INTAKE, GOOD APPETITE. PT CURRENTLY RESTING IN HOSPITAL BED WITH BLE ELEVATED TO REDUCE EDEMA. BED IN LOWEST POSITION AND CALL LIGHT WITHIN REACH, PT USES CALL LIGHT APPROPRIATELY.
[2024-10-30 19:27] VITALS: BP 104/59
[2024-10-30] MEDS ORDERED: Aspirin 81 MG Chew PO SCH (21:00)
[2024-10-31] VITALS (7 sets, daily range): BP systolic 97–137; BP diastolic 55–78
--- NOTE | 2024-10-31 04:04 | NUR ---
SHIFT SUMMARY @HS BP: 93/54, RN NOTIFIED. HELD SCHEDULED METOPROLOL PO AT HS. PT AGREEABLE TO THIS. PT HAS SPECIFIC TIMES AND ROUTINE WITH HOME MEDICATIONS, WHICH HE ENFORCES TO FOLLOW (ASPIRIN, METOPROLOL,IMDUR. PT REPORTS TAKING THE THREE MEDICATIONS CLOSE TO MIDNIGHT WHEN HOME). TELE: SR @80'S. PT HAS A PACEMAKER. SUPRAPUBIC CATHETER DRAINING WELL, YELLOW COLOR URINE. PT REQUESTED TO HAVE THE HOSPITAL BED IN [place] POSITION D/T LE EDEMA +3 BILATERALLY. EDUCATED ON FALL PRECAUTIONS. CALL LIGHT W/I REACH, BED LOCKED, THREE RAILS UP. NO ACUTE EVENTS/DISTRESS NOTED/REPORTED DURING THIS SHIFT. PT RESTED WELL T/O THE NIGHT HRS.
[2024-10-31] MEDS ORDERED: Pantoprazole Sodium 40 MG Tab PO SCH (06:00)
[2024-10-31 06:38] LABS: BASOPHILS ABSOLUTE AUTO 0.06 K/mm3 (0.00-0.23); BASOPHILS PERCENT AUTO 1 % (0-2); EOSINOPHILS ABSOLUTE AUTO 0.18 K/mm3 (0.00-0.68); EOSINOPHILS PERCENT AUTO 3 % (0-6); Hematocrit 26.6 % (37.0-53.0); Hemoglobin 8.6 g/dL (13.5-17.5); IMMATURE GRAN ABSOLUTE AUTO 0.03 K/mm3 (0.00-0.10); IMMATURE GRAN PERCENT AUTO 1 % (0-1); LYMPHOCYTES ABSOLUTE AUTO 1.25 K/mm3 (0.84-5.20); LYMPHOCYTES PERCENT AUTO 20 % (21-46); MONOCYTES ABSOLUTE AUTO 1.09 K/mm3 (0.16-1.47); MONOCYTES PERCENT AUTO 18 % (4-13); Mean Corpuscular HGB 25.1 pg (26.0-34.0); Mean Corpuscular HGB Conc 32.3 g/dL (31.5-36.5); Mean Corpuscular Volume 78 fL (80-100); Mean Platelet Volume 10.2 fL (9.1-12.4); NEUTROPHILS ABSOLUTE AUTO 3.55 K/mm3 (1.96-9.15); NEUTROPHILS PERCENT AUTO 58 % (41-73); Platelet Count 268 K/mm3 (150-400); RDW Coefficient Variation 16.6 % (11.7-14.2); RDW Standard Deviation 47.2 fL (35.1-46.3); Red Blood Cell Count 3.42 M/mm3 (4.30-5.90); White Blood Cell Count 6.16 K/mm3 (4.00-11.30)
[2024-10-31 06:53] LABS: Bun/Creatinine Ratio 19.8 (12.0-20.0); Calcium, Blood 8.4 mg/dL (8.5-10.1); Creatinine, Blood 1.06 mg/dL (0.60-1.20); Potassium, Blood 3.9 mmol/L (3.5-5.5)
[2024-10-31] MEDS ORDERED: Mag Hydrox/Al Hydrox/Simeth 18 ML,Lidocaine 2% Viscous Soln 9 ML,Atropine/Scopalam/Hyos... PO PRN (12:00)
[2024-10-31] MEDS ORDERED: Isosorbide Mononitrate 30 MG TABCR PO SCH (12:00)
[2024-10-31] MEDS ORDERED: Metoprolol Succinate 50 MG TABCR PO SCH (12:00)
--- NOTE | 2024-10-31 17:03 | NUR ---
SHIFT SUMMARY: PATIENT A/OX4, PLEASANT AND COOPERATIVE c CARE. PATIENT HAD OT EPISODE OF HURTBURN AFTER EATING HIS BREAKFAST THEN COMPLETELY RESSOLVED. DR. SCHMITZ IS AWARE OF THIS ISSUE. PATIENT DENIES CP/PRESSURE, HURTBURN, SOB, N/V AND DIZZINESS T/O SHIFT. PATIENT ON TELE, SR HR RANGE IN THE HIGH 60'S TO LOW 70'S BPM. PATIENT EDEMA TO BLE'S HAS IMPROVED, DIURESED c IV LASIX PER ORDER. PATIENT HAS CHRONIC SUPRAPUBIC CATH, PATENT DRAINING CLEAR YELLOW c SCANT SEDIMENTS IN TUBING c A TOTAL URINE OUTPUT OF 2,200 MLS THIS SHIFT. PATIENT SAT UP IN HIS ELECTRIC W/CHAIR FOR ABOUT SEVEN HRS c BLE'S ELEVATED. PATIENT HAS GOOD APPETITE. PATIENT RECEIVED SCHEDULED MEDS PER EMAR. VITAL SIGNS REVIEWED. CALL LIGHT IN REACH.
--- NOTE | 2024-10-31 18:24 | NUR ---
ADDITIONAL NOTE: PATIENT ON TELE, SR HR RANGE IN THE HIGH 60'S TO LOW 70'S BPM c BBB/IST DHB AND OCCASIONAL A-PACED.
--- NOTE | 2024-11-01 04:10 | NUR ---
SHIFT SUMMARY PT ALERT ORIENTED X 4 ABLE TO VERBALIZE NEEDS. NO C/O PAIN THIS SHIFT. HE GETS AROUND ON HIS POWER WHEELCHAIR. HES A STAND AND PIVOT TRANSFER. REMAINS ON TELEMETRY AT R AT A RATE OF 64. HE HAS A CHRONIC SUPRAPUBIC CATHETER. CONTINUES ON STRICT I&O. VSS ON RA SATTING AT 97%. REMAINS WITH BLE EDEMA. NO C/O CHEST PAIN OR TIGHTNESS OR SOB. HES A POSSIBLE DISCHARGE TODAY. HES RESTING IN HIS BED AT THIS TIME WITH CALL LIGHT IN REACH
[2024-11-01 04:30] VITALS: BP 117/53
[2024-11-01 07:52] VITALS: BP 101/59
[2024-11-01] MEDS ORDERED: JARDIANCE10 MG PO (11:32)
[2024-11-01] MEDS ORDERED: FURO40 PO (11:32)
--- NOTE | 2024-11-01 12:51 | NUR ---
SHIFT/DISCHARGE NOTE: PATIENT HAS HAD NO ACUTE CHANGES THIS SHIFT. PATIENT DENIES CP/PRESSURE, HURTBURN, SOB, N/V AND DIZZINES. PATIENT WAS ON TELE, SR HR IN THE MID 60'S BPM c BBB/1ST DHB AND OCCASIONAL A-PACED. PATIENT EDEMA TO BLE'S HAS IMPROVED c IV DIURETICS PER ORDER. PATIENT HAS CHRONIC SUPRAPUBIC CATHETER, PATENT DRAINING CLEAR YELLOW URINE TO GRAVITY, GREAT APPETITE. PATIENT RECEIVED SCHEDULED MEDS PER EMAR. VITAL SIGNS REVIEWED. PATIENT REQUEST TODAY IS TO GO HOME. PATIENT HAS HAD NO COMPLAINTS OR DENIES NEW CONCERNED. PATIENT DISCHARGE HOME. DISCHARGE INSTRUCTIONS PACKET GIVEN TO PATIENT AND PIV WAS DC'D BY CHRISTEN SEGAL. PATIENT LEFT THE ROOM AT 1240 VIA ELECTRIC W/CHAIR. ALL PERSONAL BELONGINGS WERE SENT c THE PATIENT.
== END 2024-11-01 12:37 | disposition home or self-care (01) | DRG 291 ==
LOC: ER 12:45 → ERHOLD 12:46 → MEDS 10-29 12:42 → ENPENDDIS 11-01 10:44 → MEDS 11-01 12:37
PROVIDERS: Family Medicine; Nurse Practitioner Acute Care; Physician Assistant; ADMIT Internal Medicine
DX: I11.0 Hypertensive heart disease with heart failure (principal); I50.31 Acute diastolic (congestive) heart failure; Z66 Do not resuscitate; I25.10 Atherosclerotic heart disease of native coronary artery without angina pectoris; N40.0 Benign prostatic hyperplasia without lower urinary tract symptoms; K21.9 Gastro-esophageal reflux disease without esophagitis; Z28.21 Immunization not carried out because of patient refusal; I27.20 Pulmonary hypertension, unspecified; I87.2 Venous insufficiency (chronic) (peripheral); Z88.8 Allergy status to other drugs, medicaments and biological substances
CPT/HCPCS: 36415; 71046; 80048; 80053; 83690; 83735; 83880; 84484; 85025; 93005; 93010; 93306; 96372; 96374; 96376; 99285-25; A9270; G0378; J1650; J1940